=== PATIENT | male | born 1985 | race African-American/Black ===

== ENCOUNTER 2017-01-20 23:04 | Emergency (ER) | payer SELFPAY ==
[~2017-01-20 23:04] MED LIST: NO MEDICATIONS
== END 2017-01-20 23:21 | disposition home or self-care (01) ==
LOC: SED 23:04
DX: J02.0 Streptococcal pharyngitis (principal); R03.0 Elevated blood-pressure reading, without diagnosis of hypertension
CPT/HCPCS: 87880; 96372; 99283; J0561